=== PATIENT | male | born 1945 | race Caucasian/White ===

== ENCOUNTER 2018-07-27 15:07 | Inpatient (IN) ==
[2018-07-27] MEDS ORDERED: SODIUM CHLORIDE 0.9% 1000ML 1,000 ML IV ONE ×2 (15:24→22:47)
[2018-07-27] MEDS ORDERED: ACETAMINOPHEN 1,000 MG/100 ML VIAL IV STA (15:24)
[2018-07-27] MEDS ORDERED: PROCHLORPERAZINE 2 ML IV ONE (15:24)
--- NOTE | 2018-07-27 16:09 | XRay Report ---
XR chest 1V portable CLINICAL HISTORY: Chest Pain dyspnea COMPARISON STUDY: No previous studies for comparison. FINDINGS: Mild right and to lesser extent left basilar infiltrative change. Mid and upper lungs are c onsidered clear. IMPRESSION: Bibasilar infiltrative change. The above report was generated using voice recognition software. It may contain grammatical, syntax or spelling errors. Electronically signed by: Mango Valero M.D. 07/27/2018 4:07 PM
[2018-07-27 16:12] LABS: Basophils # (auto) 0.02 K/uL (0-0.2); Basophils % (auto) 0.3 %; Eosinophils # (auto) 0.13 K/uL (0-0.5); Eosinophils % (auto) 1.6 %; Hematocrit (blood only) 38.6 % (42-52); Hemoglobin 13.3 g/dL (14.0-18.0); Immature Granulocytes # (auto) 0.03 K/uL (0.00-0.02); Immature Granulocytes % (auto) 0.4 %; Lymphocytes # (auto) 1.47 K/uL (1.2-3.4); Lymphocytes % (auto) 18.6 %; Mean Corpuscular Hgb Conc 34.5 g/dL (32-36); Mean Corpuscular Volume 93.2 fL (80-100); Mean Platelet Volume 9.7 fL (7.4-10.4); Monocytes # (auto) 0.83 K/uL (0.11-0.59); Monocytes % (auto) 10.5 %; Neutrophils # (auto) 5.41 K/uL (1.4-6.5); Neutrophils % (auto) 68.6 %; Platelet Count 210 K/uL (130-400); Red Blood Count 4.14 M/uL (4.7-6.1); White Blood Count 7.89 K/uL (4.8-10.8)
[2018-07-27 16:19] LABS: Appearance Urine Clear (Clear); Bacteria Urine Automated Negative (Negative); Bilirubin Urine Negative (Negative); Cast Urine Automated 0 /lpf (0-5); Color Urine Yellow; Epithelial Cell Urine Auto 0-5 /lpf (0-5); Glucose Urine UA Negative (Negative); Ketones Urine 2+ (Negative); Leukocyte Esterase Urine Negative (Negative); Nitrite Urine Negative (Negative); Protein Urine Negative (Negative); Specific Gravity Urine 1.014 (1.000-1.030); Urobilinogen Urine Negative (Negative)
[2018-07-27 16:33] LABS: Alanine Aminotransferase 22 U/L (12-78); Albumin Level 3.1 gm/dl (3.4-5.0); Aspartate Aminotransferase 18 U/L (15-37); BUN Creatinine Ratio 19.7 (10-20); Blood Urea Nitrogen 17 mg/dl (7-18); Calcium 8.8 mg/dl (8.5-10.1); Carbon Dioxide 24 mmol/L (21-32); Chloride 104 mmol/L (98-107); Creatinine Clr Calc Pharmacy 70.6 ml/min; Est GFR (African American) 101.4; Est GFR (Non-African American) 87.5; Glucose 77 mg/dl (70-99); Magnesium 2.4 mg/dl (1.8-2.4); Potassium 4.2 mmol/L (3.5-5.1); Sodium 135 mmol/L (136-145)
[2018-07-27 16:38] LABS: Albumin Globulin Ratio 0.8 (0.9-2); Alkaline Phosphatase 50 U/L (45-117); Bilirubin,Total 0.5 mg/dl (0.2-1); Phosphorus 2.3 mg/dl (2.5-4.9); Total Protein 7.1 gm/dl (6.4-8.2); Troponin I < 0.015 ng/ml (0-0.045)
[2018-07-27] MEDS ORDERED: OPTIRAY 320 125ml IV PRN (17:21)
--- NOTE | 2018-07-27 18:11 | CT Scan Report ---
CT ANGIOGRAPHY OF THE CHEST, PULMONARY EMBOLUS PROTOCOL CLINICAL HISTORY: Shortness of breath. Cough. Right upper quadrant pain. COMPARISON STUDY: Chest radiograph performed earlier today. TECHNIQUE: Following IV administration of 115 mL of Optiray-320, helical axial images of the chest we re obtained utilizing the pulmonary embolus protocol. Maximal intensity projections and sagittal and coronal reformats were viewed on an independent 3D workstation. IV contrast was administered withou t complication. Automated exposure control was utilized for the study. A dose lowering technique wa s utilized adhering to the principles of ALARA. CT DOSE: 577.03 mGy.cm FINDINGS: Note is made of a segmental pulmonary embolus within the right middle lobe. There is an as sociated 5.6 cm subpleural groundglass opacity within the right middle lobe consistent with a pulmona ry infarct. A few subsegmental pulmonary emboli within the right middle lobe are noted. There is no c entral pulmonary embolus. No CT evidence for right heart strain is noted. The size of the heart is no rmal. There is a small right pleural effusion, likely due to the infarct. No pneumothorax is present. Additional bilateral lower lobe opacities favor atelectasis. There is no pneumothorax. Mild to moder ate emphysema is present. Central airways are patent. Bony thorax is unremarkable. Abdomen and pelvis will be reported separately. IMPRESSION: 1. Several segmental and subsegmental pulmonary emboli within the right middle lobe with an associate d right middle lobe infarct. Small right pleural effusion. No CT evidence for right heart strain. 2. Mild to moderate emphysema. Electronically signed by: Blane Gallardo M.D. 07/27/2018 6:09 PM
--- NOTE | 2018-07-27 18:17 | CT Scan Report ---
CT OF THE ABDOMEN AND PELVIS WITH CONTRAST CLINICAL HISTORY: Right upper quadrant pain, nausea, vomiting and cough. COMPARISON STUDY: None. TECHNIQUE: Following IV administration of 115 mL of Optiray-320, axial images of the abdomen and pelv is were obtained from the lung bases to the proximal femurs. Images were reviewed in the axial, sagit britta, and coronal planes. IV contrast was administered without complication. Automated exposure contr ol was utilized for the study. A dose lowering technique was utilized adhering to the principles of ALARA. FINDINGS: Please note that the chest CT will be reported separately. A small right pleural effusion i s noted. A segmental pulmonary embolus within the right middle lobe with an associated right middle l obe infarct is noted. The liver, spleen, adrenal glands and pancreas are unremarkable. A few low-atte nuation bilateral renal lesions favor small angiomyolipomas. There is no hydronephrosis. There is no biliary or pancreatic ductal dilatation. There is extensive colonic diverticulosis without evidence f or acute diverticulitis. There is trace fluid within the pelvis. There is prominence of the medial lo be of the prostate gland which indents the base of the bladder. There is no evidence for a bowel obst ruction. The appendix is normal. No lymphadenopathy is present. There are no suspicious osseous lesio ns. IMPRESSION: 1. No acute process within the abdomen or pelvis. 2. Segmental pulmonary embolus within the right middle lobe with an associated right middle lobe infa rct and small right pleural effusion which are better depicted on the chest CT. 3. Extensive colonic diverticulosis without evidence for acute diverticulitis. Electronically signed by: Blane Gallardo M.D. 07/27/2018 6:16 PM
[2018-07-27] MEDS ORDERED: HEPARIN SOD 5,000 UNIT/0.5 ML VIAL ONE (19:37)
[2018-07-27] MEDS ORDERED: HEPARIN 25000 UNIT/500 ML D5W IV ONE ×2 (19:37→19:46)
[2018-07-27] MEDS ORDERED: PROMETHAZINE HCL 12.5 MG in SODIUM CHLORIDE 0.9% 50 ML IV PRN (19:48)
[2018-07-27] MEDS ORDERED: MoRPHine SULFATE 4 MG/ML 1 ML CARP\\VIAL IV PRN (19:48)
[2018-07-27] MEDS ORDERED: TRAMADOL HCL 50 MG TABLET PO PRN (19:48)
[2018-07-27 19:51] LABS: Partial Thromboplastin Time 27.6 Seconds (21.0-31.0); Prothrombin Time 10.3 Seconds (9.0-12.0)
[2018-07-27] MEDS ORDERED: VALSARTAN 80 MG TAB PO SCH (20:25)
--- NOTE | 2018-07-27 20:47 | History & Physical Report ---
Date of Service July 27, 2018 Assessment & Plan (1) Pulmonary infarction: This is a 73-year-old male with a PMH of HTN who presents with right chest/abdominal pain x 3 days and was found to have several segmental and subsegmental pulmonary emboli within the right middle lobe with an associated right middle lobe infarct. -Flew from [facility] for a wedding this weekend, developed pleuritic R-sided chest pain 3 days ago that has worsened -Saturating at 95% on room air, hemodynamically stable -Chest CTA with several segmental and subsegmental pulmonary emboli within the right middle lobe with an associated right middle lobe infarct. No CT evidence for right heart strain. -Started on IV heparin in ED -See addendum for further plan details (2) HTN (hypertension): Valsartan 80mg HS (has not received PM dose) Patient seen in collaboration with Dr. Laurent. Please see addendum. History of Present Illness Chief Complaint: Right chest/abdominal pain Primary Care Provider: Cesar Wilkinson MD This is a 73-year-old male with a PMH of HTN who presents with right chest/abdominal pain x 3 days. Patient lives in [place] and recently flew to [place] for a family wedding. Following the wedding on Thursday, patient noted right-sided chest/abdominal pain that was sharp and worse with deep inspiration. Was associated with nausea. Thought that he may have pulled a muscle earlier in the day playing golf. Following the wedding, patient went to [facility] for evaluation and was thought to have had either a muscle tear or indigestion. Was discharged home with Zantac, simethicone and tramadol as needed for pain. Pain persisted and worsened over the past few days, most notable with deep inspiration. Pain is not made worse with movement. Has also had decreased appetite with intermittent nausea and one small bout of emesis. Denies any fever, chills, lightheadedness, headache, palpitations, shortness of breath, dysuria, diarrhea, constipation or lower extremity swelling. In the ED, patient was found to be hemodynamically stable and afebrile. Oxygen saturation of 95% on room air. Chest CTA with several segmental and subsegmental pulmonary emboli within the right middle lobe with an associated right middle lobe infarct. No CT evidence for right heart strain. No acute process found on CT abd/pelvis. No personal history of PEs or clotting disorders. Mother with history of PE. Was started on IV heparin in the ED. Allergies Allergy/AdvReac Type Severity Reaction Status Date / Time No Known Allergies Allergy Unverified 07/27/18 15:11 Home Medications Home Medications Medication Instructions Recorded Confirmed Type ibuprofen [Advil] 400 mg PO BID PRN 07/27/18 07/27/18 History multivitamin 1 tab PO DAILY 07/27/18 07/27/18 History ranitidine HCl [Zantac] 150 mg PO BID 07/27/18 07/27/18 History simethicone [Gas Relief 80] 80 mg PO QID PRN 07/27/18 07/27/18 History tramadol 50 mg PO Q4 PRN 07/27/18 07/27/18 History valsartan [Diovan] 80 mg PO DAILY 07/27/18 07/27/18 History Past Med/Surg History Medical History HTN (hypertension) (Chronic) Surgical History No significant past surgical history (Chronic) Family History Other Diabetes Heart disease Pulmonary embolism Social History Preferred Language: Lithuanian Communication Ability: Effective Seat Maker Required: No Beliefs That Will Affect Care: None Current Living Situation: Spouse Feels Safe at Home: Yes Safety Concerns: Feels Safe At This Time Smoking Status: Never smoker Hx Alcohol Use: Yes Alcohol type: beer, wine and hard liquor Alcohol Intake Frequency Comment: has 1-2 drinks 3-5 days/week Hx Substance Use: No Review of Systems Review of Systems: At least ten systems reviewed and negative except as noted in the HPI. Physical Exam Physical Exam: General Appearance: WD/WN, no apparent distress, resting comfortably Head: normocephalic, atraumatic Eyes: normal inspection, PERRL, EOMI ENT: hearing grossly normal, pharynx normal (moist mucous membranes) Neck: supple, no JVD, no adenopathy Respiratory/Chest: lungs clear to auscultation. No wheezes, rales or rhonci. No respiratory distress or accessory muscle use Cardiovascular: regular rate, rhythm, no murmur, normal peripheral pulses Abdomen/GI: normal bowel sounds, soft, non-tender to palpation Extremities/Musculoskelatal: normal inspection, no calf tenderness, normal capillary refill, no pedal edema Neurologic/Psych: alert, normal mood/affect, oriented x 3 Skin: normal color, warm/dry Results & Data Vital Signs (Past 12 Hours) Vital Signs Temp Pulse Pulse Resp BP BP Pulse Ox 07/27/18 20:24 63 18 143/79 H 95 07/27/18 18:30 64 17 151/86 H 98 07/27/18 17:38 66 21 145/81 H 96 07/27/18 17:00 67 22 152/85 H 98 07/27/18 16:00 68 20 142/82 H 97 07/27/18 15:55 68 18 149/80 H 98 07/27/18 15:11 36.5 C 71 20 171/93 H 97 Code Status & VTE Plan Code Status FULL Supervising Physician Co-Signing Physician Notes IM ATTENDING : Patient seen and examined. History obtained from patient and records. Preceding documentation by Ms. Mona Gannon PA-C reviewed. In addition, stool Hemoccult done at the ER was negative. FINAL ASSESSMENT AND PLAN as follows : Acute pulmonary embolism First episode Rule out LE venous thrombosis as source, hx travel from [place] Family history of blood clot Hypertension slight elevated secondary to pleuritic chest pain secondary to pulmonary infarct Anemia, unknown duration, possibly from intermittent LGIB from diverticulosis. (Patient recalls one episode of painless hematochezia at home. ) Medical telemetry IV heparin Defer discussion regarding choice of oral agent between patient and AM provider. (Patient has expressed interest in NOAC option.) LE venous Dopplers rule out DVT Anemia work-up DVT prophylaxis IV heparin Full code
[2018-07-27] MEDS ORDERED: MoRPHine SULFATE 2 MG/ML CARP IV PRN (22:47)
[2018-07-27] MEDS ORDERED: ACETAMINOPHEN 325 MG TAB PO PRN (22:47)
[2018-07-27] MEDS ORDERED: SODIUM PHOSPHATE 3 MMOL/1 ML 5 ML VIAL IV STA (22:47)
--- NOTE | 2018-07-27 23:20 | Emergency Department Note ---
Entered by Suma Liang acting as a scribe for Jean Waldrop MD History of Present Illness General Chief complaint: Abdominal Pain Stated complaint: RIGHT ABDOMINAL PAIN, NAUSEA, VOMITING, COUGH Time Seen by Provider: 07/27/18 15:16 Source: patient History of Present Illness Onset (ago): day(s) 2 Location: abdomen Severity: similar to prior episodes Pain Consistency: + constant Maximum Pain Intensity: 3 Associated symptoms: + denies other symptoms (burning urination) and + nausea/vomiting; no fever/chills and no shortness of breath The patient is a 73 year old M who presents to the Emergency Room with complaints of constant upper abdominal pain that started 2 days ago. He notes that he is currently experiencing vomiting and nausea. He denies experiencing a fever, chills, shortness of breath, and burning urination. He notes that he was in the ED 2 days ago for his current symptoms. He adds that prior to his last ED visit, he was at a wedding and had a beer to drink. He denies being intoxicated but notes that the ED doctor told him that his symptoms were due to alcohol. He notes that he was told to return to the ED if his symptoms did not resolve. He adds that this is the reason why he is in the ED today. He states that prior to 2 days ago, he never experienced his current symptoms. He notes that he has not eaten for 2 days. He states that he has a history of HTN and regular alcohol drinking. He adds that he has gone 3-4 days before without drinking. He denies having a history of smoking and gallstones. He notes that he has been retired for 9 years. Home Medications Home Medications Medication Instructions Recorded Confirmed Type ibuprofen [Advil] 400 mg PO BID PRN 07/27/18 07/27/18 History multivitamin 1 tab PO DAILY 07/27/18 07/27/18 History ranitidine HCl [Zantac] 150 mg PO BID 07/27/18 07/27/18 History simethicone [Gas Relief 80] 80 mg PO QID PRN 07/27/18 07/27/18 History tramadol 50 mg PO Q4 PRN 07/27/18 07/27/18 History valsartan [Diovan] 80 mg PO DAILY 07/27/18 07/27/18 History Allergies Allergy/AdvReac Type Severity Reaction Status Date / Time No Known Allergies Allergy Unverified 07/27/18 15:11 Past Med/Surg History Medical History HTN (hypertension) (Chronic) Surgical History No significant past surgical history (Chronic) Family History Other Diabetes Heart disease Pulmonary embolism Social History Preferred Language: Yakut Communication Ability: Effective Floorworker Required: No Beliefs That Will Affect Care: None Current Living Situation: Spouse Feels Safe at Home: Yes Safety Concerns: Feels Safe At This Time Smoking Status: Never smoker Hx Alcohol Use: Yes Alcohol type: beer, wine and hard liquor Alcohol Intake Frequency Comment: has 1-2 drinks 3-5 days/week Hx Substance Use: No Review of Systems See HPI for pertinent positives & negatives. and A total of 10 systems reviewed and were otherwise negative Physical Exam Vital Signs Vital Signs - 24 hr 07/27/18 15:11 07/27/18 15:55 07/27/18 16:00 Temperature 36.5 C Temperature Source Oral Sepsis Recent Fever Within 48 Hours No Sepsis New/Unexplained Change in Mental Status No Sepsis Action Taken by Nursing No Action Required Pulse Rate 71 Pulse Rate [Left Finger] 68 68 Pulse Rhythm Regular Pulse Rhythm [Left Finger] Regular Regular Pulse Strength Normal Respiratory Rate 20 18 20 Respiratory Effort / Characteristics Non-Labored Spontaneous Non-Labored Non-Labored Respiratory Depth Normal Normal Normal Respiratory Pattern Regular Regular Regular Blood Pressure 171/93 H Blood Pressure [Left Arm] 149/80 H 142/82 H Blood Pressure Mean 119 Blood Pressure Mean [Left Arm] 103 102 Blood Pressure Position Sitting Pulse Oximetry 97 98 97 Oxygen Delivery Method Room Air Room Air Room Air 07/27/18 17:00 07/27/18 17:38 07/27/18 18:30 Temperature Temperature Source Sepsis Recent Fever Within 48 Hours Sepsis New/Unexplained Change in Mental Status Sepsis Action Taken by Nursing Pulse Rate Pulse Rate [Left Finger] 67 66 64 Pulse Rhythm Pulse Rhythm [Left Finger] Regular Regular Regular Pulse Strength Respiratory Rate 22 21 17 Respiratory Effort / Characteristics Non-Labored Non-Labored Non-Labored Respiratory Depth Normal Normal Normal Respiratory Pattern Regular Regular Regular Blood Pressure Blood Pressure [Left Arm] 152/85 H 145/81 H 151/86 H Blood Pressure Mean Blood Pressure Mean [Left Arm] 107 102 107 Blood Pressure Position Pulse Oximetry 98 96 98 Oxygen Delivery Method Room Air Room Air Room Air 07/27/18 20:24 Temperature Temperature Source Sepsis Recent Fever Within 48 Hours Sepsis New/Unexplained Change in Mental Status Sepsis Action Taken by Nursing Pulse Rate Pulse Rate [Left Finger] 63 Pulse Rhythm Pulse Rhythm [Left Finger] Pulse Strength Respiratory Rate 18 Respiratory Effort / Characteristics Respiratory Depth Respiratory Pattern Blood Pressure Blood Pressure [Left Arm] 143/79 H Blood Pressure Mean Blood Pressure Mean [Left Arm] 100 Blood Pressure Position Pulse Oximetry 95 Oxygen Delivery Method Room Air GENERAL: Awake, alert, fatigued appearing, no distress HENT: Normocephalic, atraumatic. TM's normal. Dry mucous membranes. EYES: PERRL. EOMI. Normal conjunctiva. Sclera non-icteric. NECK: Supple. No nuchal rigidity. FROM. No JVD or bruit. RESPIRATORY: CTAB CARDIAC: RRR. ABDOMEN: Soft, non distended. Mild RUQ tenderness to palpation, negative newman's sign. No rebound or guarding. No masses. RECTAL: Deferred. MUSCULOSKELETAL: Unremarkable. No edema. No discoloration. Gross motor strength symmetric. NEURO: Normal sensorium. No sensory or motor deficits noted. SKIN: No rash or jaundice noted. LYMPH: No adenopathy Course 1517: The patient was evaluated in room A11B. A complete history and physical exam was performed. 1539: I performed a bedside ultrasound on the patient. 1843: I reviewed the patient's case with CLAIRE Wayne. She will evaluate the patient for further management. Consultations Consultation #1: I reviewed the patient's case with CLAIRE Wayne. She will evaluate the patient for further management. Time: 18:43 Administered Medications Sodium Chloride (Nss 1000ml) 1,000 mls @ 50 mls/hr IV .Q20H ONE Stop: 07/28/18 18:46 Last Admin: 07/28/18 00:39 Dose: 50 mls/hr Documented by: [id number] Sodium Phosphate 15 mmol/ (Sodium Chloride) 255 mls @ 88 mls/hr IV ONE ONE Stop: 07/28/18 02:23 Last Admin: 07/28/18 00:39 Dose: 88 mls/hr Documented by: [id number] Heparin Sodium/Dextrose (Heparin Sodium/Dextrose) 25,000 units in 500 mls @ 23 mls/hr IV .[id number] RHIANNON; Protocol Stop: 08/26/18 23:44 Last Admin: 07/28/18 00:40 Dose: 1,150 units/hr, 23 mls/hr Documented by: [id number] Cosigned by: [id number] Valsartan (Diovan) 80 mg PO HS RHIANNON Stop: 08/26/18 20:24 Last Admin: 07/28/18 00:40 Dose: 80 mg Documented by: [id number] Discontinued Medications Heparin Sodium (Porcine) (Heparin Sodium (Porcine)) Confirm Administered Dose 5,000 units .ROUTE .STK-MED ONE Stop: 07/27/18 19:38 Last Admin: 07/27/18 19:52 Dose: 5,000 units Documented by: [id number] Cosigned by: [id number] Heparin Sodium/Dextrose () 1 ea IV NOW STA; Protocol Stop: 07/27/18 18:39 Last Admin: 07/27/18 19:52 Dose: 1 ea Documented by: [id number] Heparin Sodium/Dextrose (Heparin Sodium/Dextrose) Confirm Administered Dose 25,000 units IV .STK-MED ONE Stop: 07/27/18 19:38 Last Admin: 07/27/18 19:45 Dose: Not Given Documented by: [id number] Heparin Sodium/Dextrose (Heparin Sodium/Dextrose) Confirm Administered Dose 25,0 00 units IV .STK-MED ONE Stop: 07/27/18 19:47 Last Admin: 07/27/18 19:51 Dose: 500 ml Documented by: [id number] Cosigned by: [id number] Prochlorperazine (Compazine) 2 mls @ 1 mls/min IV ONE ONE Stop: 07/27/18 15:25 Last Admin: 07/27/18 21:24 Dose: Not Given Documented by: [id number] Sodium Chloride (Nss 1000ml) 1,000 mls @ 999 mls/hr IV .Q1H1M ONE Stop: 07/27/18 16:24 Last Infusion: 07/27/18 17:09 Dose: 0 mls/hr Documented by: [id number] Admin: 07/27/18 16:07 Dose: 999 mls/hr Documented by: [id number] Acetaminophen (Ofirmev) 1,000 mg in 100 mls @ 400 mls/hr IV NOW STA Stop: 07/27/18 15:38 Last Infusion: 07/27/18 16:37 Dose: 0 mls/hr Documented by: [id number] Admin: 07/27/18 16:15 Dose: 400 mls/hr Documented by: [id number] Ioversol (Optiray 320 125ml) 115 ml IV ONCE PRN PRN Reason: Interaction Checking Stop: 07/31/18 17:20 Last Admin: 07/27/18 17:21 Dose: 115 ml Documented by: [id number] Medical Decision Making Differential Diagnosis Differential diagnosis includes: cardiac ischemia, aortic dissection, pulmonary embolism, pneumonia, pneumothorax, musculoskeletal, infections, pericarditis, myocarditis, esophageal rupture, gastrointestinal, as well as others were entert ained. Medical Records Attestation: I reviewed the patient's medical records. Home Medications Current Medication List: was personally reviewed by me Laboratory Data Attestation: I reviewed the patient's lab results. Result diagrams: 07/27/18 16:00 07/27/18 16:00 Lab Results 07/27/18 07/27/18 07/27/18 Range/Units 16:00 16:00 16:03 WBC 7.89 (4.8-10.8) K/uL RBC 4.14 L (4.7-6.1) M/uL Hgb 13.3 L (14.0-18.0) g/dL Hct 38.6 L (42-52) % MCV 93.2 (80-100) fL MCH 32.1 (25-34) pg MCHC 34.5 (32-36) g/dL RDW Std Deviation 45.0 (36.4-46.3) fL RDW Coeff of Tamia 13.0 (11.5-14.5) % Plt Count 210 (130-400) K/uL MPV 9.7 (7.4-10.4) fL Immature Gran % (Auto) 0.4 % Neut % (Auto) 68.6 % Lymph % (Auto) 18.6 % [place] % (Auto) 10.5 % Eos % (Auto) 1.6 % Baso % (Auto) 0.3 % Immature Gran # (Auto) 0.03 H (0.00-0.02) K/uL Neut # (Auto) 5.41 (1.4-6.5) K/uL Lymph # (Auto) 1.47 (1.2-3.4) K/uL [place] # (Auto) 0.83 H (0.11-0.59) K/uL Eos # (Auto) 0.13 (0-0.5) K/uL Baso # (Auto) 0.02 (0-0.2) K/uL PT (9.0-12.0) Seconds INR (0.9-1.1) APTT (21.0-31.0) Seconds PTT Ratio Sodium 135 L (136-145) mmol/L Potassium 4.2 (3.5-5.1) mmol/L Chloride 104 (98-107) mmol/L Carbon Dioxide 24 (21-32) mmol/L Anion Gap 7.0 (3-11) BUN 17 (7-18) mg/dl Creatinine 0.84 (0.6-1.4) mg/dl Est Cr Clr Drug Dosing 70.6 ml/min Est GFR ( Amer) 101.4 Est GFR (Non-Af Amer) 87.5 BUN/Creatinine Ratio 19.7 (10-20) Glucose 77 (70-99) mg/dl Calcium 8.8 (8.5-10.1) mg/dl Phosphorus 2.3 L (2.5-4.9) mg/dl Magnesium 2.4 (1.8-2.4) mg/dl Total Bilirubin 0.5 (0.2-1) mg/dl AST 18 (15-37) U/L ALT 22 (12-78) U/L Alkaline Phosphatase 50 (45-117) U/L Troponin I < 0.015 (0-0.045) ng/ml Total Protein 7.1 (6.4-8.2) gm/dl Albumin 3.1 L (3.4-5.0) gm/dl Globulin 4.0 (2.5-4.0) gm/dl Albumin/Globulin Ratio 0.8 L (0.9-2) Lipase 551 H (73-393) U/L Urine Color Yellow Urine Appearance Clear (Clear) Urine pH 5.0 (4.5-7.5) Ur Specific [place] 1.014 (1.000-1.030) Urine Protein Negative (Negative) Urine Glucose (UA) Negative (Negative) Urine Ketones 2+ H (Negative) Urine Blood 2+ H (Negative) Urine Nitrite Negative (Negative) Urine Bilirubin Negative (Negative) Urine Urobilinogen Negative (Negative) Ur Leukocyte Esterase Negative (Negative) Urine WBC (Auto) 1-5 (0-5) /hpf Urine RBC (Auto) 0-4 (0-4) /hpf U Hyaline Cast (Auto) 0 (0-5) /lpf U Epithel Cells (Auto) 0-5 (0-5) /lpf Urine Bacteria (Auto) Negative (Negative) 07/27/18 Range/Units 19:14 WBC (4.8-10.8) K/uL RBC (4.7-6.1) M/uL Hgb (14.0-18.0) g/dL Hct (42-52) % MCV (80-100) fL MCH (25-34) pg MCHC (32-36) g/dL RDW Std Deviation (36.4-46.3) fL RDW Coeff of Tamia (11.5-14.5) % Plt Count (130-400) K/uL MPV (7.4-10.4) fL Immature Gran % (Auto) % Neut % (Auto) % Lymph % (Auto) % [place] % (Auto) % Eos % (Auto) % Baso % (Auto) % Immature Gran # (Auto) (0.00-0.02) K/uL Neut # (Auto) (1.4-6.5) K/uL Lymph # (Auto) (1.2-3.4) K/uL [place] # (Auto) (0.11-0.59) K/uL Eos # (Auto) (0-0.5) K/uL Baso # (Auto) (0-0.2) K/uL PT 10.3 (9.0-12.0) Seconds INR 1.0 (0.9-1.1) APTT 27.6 (21.0-31.0) Seconds PTT Ratio 1.0 Sodium (136-145) mmol/L Potassium (3.5-5.1) mmol/L Chloride (98-107) mmol/L Carbon Dioxide (21-32) mmol/L Anion Gap (3-11) BUN (7-18) mg/dl Creatinine (0.6-1.4) mg/dl Est Cr Clr Drug Dosing ml/min Est GFR ( Amer) Est GFR (Non-Af Amer) BUN/Creatinine Ratio (10-20) Glucose (70-99) mg/dl Calcium (8.5-10.1) mg/dl Phosphorus (2.5-4.9) mg/dl Magnesium (1.8-2.4) mg/dl Total Bilirubin (0.2-1) mg/dl AST (15-37) U/L ALT (12-78) U/L Alkaline Phosphatase (45-117) U/L Troponin I (0-0.045) ng/ml Total Protein (6.4-8.2) gm/dl Albumin (3.4-5.0) gm/dl Globulin (2.5-4.0) gm/dl Albumin/Globulin Ratio (0.9-2) Lipase (73-393) U/L Urine Color Urine Appearance (Clear) Urine pH (4.5-7.5) Ur Specific [place] (1.000-1.030) Urine Protein (Negative) Urine Glucose (UA) (Negative) Urine Ketones (Negative) Urine Blood (Negative) Urine Nitrite (Negative) Urine Bilirubin (Negative) Urine Urobilinogen (Negative) Ur Leukocyte Esterase (Negative) Urine WBC (Auto) (0-5) /hpf Urine RBC (Auto) (0-4) /hpf U Hyaline Cast (Auto) (0-5) /lpf U Epithel Cells (Auto) (0-5) /lpf Urine Bacteria (Auto) (Negative) Imaging Data Radiologist's Impression: Radiology results as stated below per my review and the radiologist's interpretation: XR chest 1V portable CLINICAL HISTORY: Chest Pain dyspnea COMPARISON STUDY: No previous studies for comparison. FINDINGS: Mild right and to lesser extent left basilar infiltrative change. Mid and upper lungs are considered clear. IMPRESSION: Bibasilar infiltrative change. The above report was generated using voice recognition software. It may contain grammatical, syntax or spelling errors. Electronically signed by: Mango Valero M.D. 07/27/2018 4:[address] ANGIOGRAPHY OF THE CHEST, PULMONARY EMBOLUS PROTOCOL CLINICAL HISTORY: Shortness of breath. Cough. Right upper quadrant pain. COMPARISON STUDY: Chest radiograph performed earlier today. TECHNIQUE: Following IV administration of 115 mL of Optiray-320, helical axial images of the chest were obtained utilizing the pulmonary embolus protocol. Maximal intensity projections and sagittal and coronal reformats were viewed on an independent 3D workstation. IV contrast was administered without complication. Automated exposure control was utilized for the study. A dose lowering technique was utilized adhering to the principles of ALARA. CT DOSE: 577.03 mGy.cm FINDINGS: Note is made of a segmental pulmonary embolus within the right middle lobe. There is an associated 5.6 cm subpleural groundglass opacity within the right middle lobe consistent with a pulmonary infarct. A few subsegmental pulmonary emboli within the right middle lobe are noted. There is no central pulmonary embolus. No CT evidence for right heart strain is noted. The size of the heart is normal. There is a small right pleural effusion, likely due to the infarct. No pneumothorax is present. Additional bilateral lower lobe opacities favor atelectasis. There is no pneumothorax. Mild to moderate emphysema is present. Central airways are patent. Bony thorax is unremarkable. Abdomen and pelvis will be reported separately. IMPRESSION: 1. Several segmental and subsegmental pulmonary emboli within the right middle lobe with an associated right middle lobe infarct. Small right pleural effusion. No CT evidence for right heart strain. 2. Mild to moderate emphysema. Electronically signed by: Blane Gallardo M.D. 07/27/2018 6:[address] OF THE ABDOMEN AND PELVIS WITH CONTRAST CLINICAL HISTORY: Right upper quadrant pain, nausea, vomiting and cough. COMPARISON STUDY: None. TECHNIQUE: Following IV administration of 115 mL of Optiray-320, axial images of the abdomen and pelvis were obtained from the lung bases to the proximal femurs. Images were reviewed in the axial, sagittal, and coronal planes. IV contrast was administered without complication. Automated exposure control was utilized for the study. A dose lowering technique was utilized adhering to the principles of ALARA. FINDINGS: Please note that the chest CT will be reported separately. A small right pleural effusion is noted. A segmental pulmonary embolus within the right middle lobe with an associated right middle lobe infarct is noted. The liver, spleen, adrenal glands and pancreas are unremarkable. A few low-attenuation bilateral renal lesions favor small angiomyolipomas. There is no hydronephrosis. There is no biliary or pancreatic ductal dilatation. There is extensive colonic diverticulosis without evidence for acute diverticulitis. There is trace fluid within the pelvis. There is prominence of the medial lobe of the prostate gland which indents the base of the bladder. There is no evidence for a bowel obstruction. The appendix is normal. No lymphadenopathy is present. There are no suspicious osseous lesions. IMPRESSION: 1. No acute process within the abdomen or pelvis. 2. Segmental pulmonary embolus within the right middle lobe with an associated right middle lobe infarct and small right pleural effusion which are better depicted on the chest CT. 3. Extensive colonic diverticulosis without evidence for acute diverticulitis. Electronically signed by: Blane Gallardo M.D. 07/27/2018 6:16 PM ECG Data Attestation: I personally reviewed and interpreted this ECG as follows: Indication: abdominal pain Rate (beats per minute): 69 Rhythm: normal sinus Findings: + other (normal axis); no acute ischemic change Blood Pressure Blood Pressure Findings: Elevated blood pressure Blood Pressure Disposition: further management by hospitalist KIET Herrera The patient is a pleasant 73 y/o gentleman with a pmhx of HTN who presents to the emergency department with persistent RUQ right lower chest pain with associated nausea and pain with inspiration per HPI. Patient is visiting from [place] and first experienced sx 2 days at wedding when he presented to [facility] and was diagnosed with alcohol gastritis. On arrival the patient is fatigued appearing but in NAD, AFVSS. EKG unremarkable without evidence of acute ischemia. CXR with bibasilar infiltrative change. Bedside US of gallbladder negative for gallstones. Limited bedside lung US with right basilar hyperechoic signal that further suggests infiltrative change. No evidence of right heart strain. WBC wnl. H/H 13.3/38.6 without prior values for comparison. Chemistry without acidosis. LFTs unremarkable. Troponin negative. CTA of chest demonstrates "several segmental and subsegmental pulmonary emboli within the right middle lobe with an associated right middle lobe infarct and small right pleural effusion". CT abd/pelvis without acute process. Patient and family updated on findings. Patient denies any history of bleeding GI or otherwise. Patient ordered for Heparin considering evidence of pulmonary infarct. Case was discussed with MonaKandi Loera PAC, who evaluate the patient for admission. Impression & Plan Pulmonary embolism and infarction Critical Care Time I have personally spent greater than 55 minutes of critical care time in the direct management of this patient. This includes bedside care, interpretation of diagnostic studies, and testing, discussion with consultants, patient, and family members, and other required patient management activities. This 55 minutes is in excess of all separately billable procedures. Critical Care Time: Yes Total Critical Care Time: 55 Discharge Plan Visit Data *Final* Discharge Date/Time: 07/27/18 22:34 Chief Complaint: Abdominal Pain Stated Complaint: RIGHT ABDOMINAL PAIN, NAUSEA, VOMITING, COUGH ED Provider: Jean Waldrop Discharge Problem: Pulmonary embolism and infarction Patient Disposition: Admitted As Inpatient Discharge Instructions Interventions: ED Discharge Assessment Last Done: 07/27/18 22:34 The scribe's documentation has been prepared under my direction and personally reviewed by me in its entirety. I confirm that the note above accurately reflects all work, treatment, procedures, and medical decision making performed by me.
[2018-07-27] MEDS ORDERED: SODIUM PHOSPHATE 15 MMOL in SODIUM CHLORIDE 0.9% 250 ML IV ONE (23:30)
[2018-07-27] MEDS ORDERED: Heparin Adult STANDARD Wt-Based Dextrose 5% 25,000 units/500 mL IV SCH (23:45)
[2018-07-28 02:11] LABS: Basophils # (auto) 0.02 K/uL (0-0.2); Basophils % (auto) 0.3 %; Eosinophils # (auto) 0.13 K/uL (0-0.5); Eosinophils % (auto) 1.8 %; Hematocrit (blood only) 35.7 % (42-52); Hemoglobin 12.4 g/dL (14.0-18.0); Immature Granulocytes # (auto) 0.02 K/uL (0.00-0.02); Immature Granulocytes % (auto) 0.3 %; Lymphocytes # (auto) 1.31 K/uL (1.2-3.4); Lymphocytes % (auto) 17.8 %; Mean Corpuscular Hgb Conc 34.7 g/dL (32-36); Mean Platelet Volume 9.6 fL (7.4-10.4); Monocytes # (auto) 0.79 K/uL (0.11-0.59); Monocytes % (auto) 10.7 %; Neutrophils # (auto) 5.11 K/uL (1.4-6.5); Neutrophils % (auto) 69.1 %; Platelet Count 203 K/uL (130-400); RDW Coefficient of Variation 12.8 % (11.5-14.5); RDW Standard Deviation 43.3 fL (36.4-46.3); Red Blood Count 3.88 M/uL (4.7-6.1); Reticulocyte % 0.9 % (0.5-2.0); Reticulocytes # 0.04 10^6/uL (0.02-0.10); White Blood Count 7.38 K/uL (4.8-10.8)
[2018-07-28 02:32] LABS: Ferritin 294.5 ng/ml (8-388); Phosphorus 2.8 mg/dl (2.5-4.9)
[2018-07-28 02:34] LABS: Partial Thromboplastin Ratio 2.6
[2018-07-28 02:36] LABS: Partial Thromboplastin Time 70.9 Seconds (21.0-31.0)
[2018-07-28 02:50] LABS: Folate (Folic Acid) 16.7 ng/ml (>5.38)
--- NOTE | 2018-07-28 06:24 | Ultrasound Report ---
US venous doppler LE BI CLINICAL HISTORY: Pulmonary embolism. COMPARISON STUDY: No previous studies for comparison. FINDINGS: Real-time and color flow Doppler imaging were performed. Flow was seen within the femoral, popliteal and calf veins with no intraluminal thrombus demonstrated. The saphenous vein is patent. IMPRESSION: No evidence of lower extremity DVT. Electronically signed by: Renny Garcia M.D. 07/28/2018 6:22 AM
[2018-07-28] MEDS: Heparin IV Standard *NO* Bolus IV SCH ×2 (07:29→07:30)
[2018-07-28] MEDS ORDERED: MULTIVITAMIN TAB PO SCH (09:00)
[2018-07-28 09:48] LABS: Partial Thromboplastin Ratio 2.3
[2018-07-28 10:08] LABS: Partial Thromboplastin Time 62.1 Seconds (21.0-31.0)
[2018-07-28 11:52] VITALS: PULSE 68; TEMP 98.2; O2SAT 93
--- NOTE | 2018-07-28 13:31 | Hospitalist Progress Note ---
Date of Service July 28, 2018 Assessment & Plan (1) Pulmonary infarction: Patient is a 73 yr male with H/O HTN who presents with right chest/abdominal pain x 3 days and was found to have several segmental and subsegmental pulmonary emboli within the right middle lobe with an associated right middle lobe infarct. Acute pulmonary embolism H/O recent travel Chest CTA with several segmental and subsegmental pulmonary emboli within the right middle lobe with an associated right middle lobe infarct. No CT evidence for right heart strain. Venous Doppler:No evidence of lower extremity DVT. IV Heparin ggt >>>Transitioned to PO Eliquis Patient prefers eliquis and agrees with above management Saturating well on Room air Right pleuritic chest pain improved Hypercoagulable work up as outpatient (2) HTN (hypertension): Valsartan 80mg HS DVT Px: On Eliquis Code Status Full Code Subjective Patient is seen and examined at bedside Right sided pleuritic chest pain much improved Denies any shortness of breath, dizziness, abdominal pain, bleeding issues Eager to get discharged Offers no other complaints Prefers to be started on Eliquis. Review of Systems Review of Systems: All systems reviewed & are unremarkable except as noted in HPI & below Physical Exam 2 Physical Exam: Physical Exam: Vitals signs as noted above General Appearance:Moderately built and nourished, no apparent distress Head: normocephalic, Atraumatic Eyes: normal inspection, EOMI Neck: supple, Trachea midline Respiratory/Chest: Normal breath sounds, CTA Cardiovascular: S1, S2, No murmur Abdomen/GI:Soft, Non tender, Bowel sounds present Extremities/Musculoskelatal:normal inspection, no edema Neurologic/Psych:AAOX3, grossly no focal neurological deficits Skin: normal color, warm Results & Data Vital Signs (Past 12 Hours) Vital Signs Temp Pulse Pulse Resp BP Pulse Ox 07/28/18 11:52 36.8 C 68 16 136/76 93 07/28/18 08:33 62 07/28/18 07:47 37 C 65 18 149/83 H 95 07/28/18 07:13 37 C 65 18 149/83 H 95 07/28/18 04:00 36.5 C 60 20 138/76 96 07/28/18 01:26 71 Laboratory Results Short CBC 07/27/18 07/28/18 Range/Units 16:00 01:48 WBC 7.89 7.38 (4.8-10.8) K/uL Hgb 13.3 L 12.4 L (14.0-18.0) g/dL Hct 38.6 L 35.7 L (42-52) % Plt Count 210 203 (130-400) K/uL BMP 07/27/18 16:00 Sodium 135 L Potassium 4.2 Chloride 104 Carbon Dioxide 24 BUN 17 Creatinine 0.84 Glucose 77 Calcium 8.8 Cardiac Enzymes 07/27/18 Range/Units 16:00 Troponin I < 0.015 (0-0.045) ng/ml Liver Function 07/27/18 Range/Units 16:00 Total Bilirubin 0.5 (0.2-1) mg/dl AST 18 (15-37) U/L ALT 22 (12-78) U/L Alkaline Phosphatase 50 (45-117) U/L Albumin 3.1 L (3.4-5.0) gm/dl Urine 07/27/18 Range/Units 16:03 Urine Color Yellow Urine Appearance Clear (Clear) Urine pH 5.0 (4.5-7.5) Ur Specific [place] 1.014 (1.000-1.030) Urine Protein Negative (Negative) Urine Glucose (UA) Negative (Negative)
--- NOTE | 2018-07-28 13:41 | Discharge Summary ---
Date of Service July 28, 2018 Admission HPI Per Admitting Provider This is a 73-year-old male with a PMH of HTN who presents with right chest/abdominal pain x 3 days. Patient lives in [place] and recently flew to [place] for a family wedding. Following the wedding on Thursday, patient noted right-sided chest/abdominal pain that was sharp and worse with deep inspiration. Was associated with nausea. Thought that he may have pulled a muscle earlier in the day playing golf. Following the wedding, patient went to [facility] for evaluation and was thought to have had either a muscle tear or indigestion. Was discharged home with Zantac, simethicone and tramadol as needed for pain. Pain persisted and worsened over the past few days, most notable with deep inspiration. Pain is not made worse with movement. Has also had decreased appetite with intermittent nausea and one small bout of emesis. Denies any fever, chills, lightheadedness, headache, palpitations, shortness of breath, dysuria, diarrhea, constipation or lower extremity swelling. In the ED, patient was found to be hemodynamically stable and afebrile. Oxygen saturation of 95% on room air. Chest CTA with several segmental and subsegmental pulmonary emboli within the right middle lobe with an associated right middle lobe infarct. No CT evidence for right heart strain. No acute process found on CT abd/pelvis. No personal history of PEs or clotting disorders. Mother with history of PE. Was started on IV heparin in the ED. Admission Exam Per Admitting Provider General Appearance: WD/WN, no apparent distress, resting comfortably Head: normocephalic, atraumatic Eyes: normal inspection, PERRL, EOMI ENT: hearing grossly normal, pharynx normal (moist mucous membranes) Neck: supple, no JVD, no adenopathy Respiratory/Chest: lungs clear to auscultation. No wheezes, rales or rhonci. No respiratory distress or accessory muscle use Cardiovascular: regular rate, rhythm, no murmur, normal peripheral pulses Abdomen/GI: normal bowel sounds, soft, non-tender to palpation Extremities/Musculoskelatal: normal inspection, no calf tenderness, normal capillary refill, no pedal edema Neurologic/Psych: alert, normal mood/affect, oriented x 3 Skin: normal color, warm/dry Principal Diagnosis Discharge Information Discharge Diagnosis Acute pulmonary embolism/Infarct Discharge Goals Decrease discomfort,Improve function,Improve disease control Discharge Activity Limitations Per instructions/follow-up Discharge Data Allergies Allergy/AdvReac Type Severity Reaction Status Date / Time No Known Allergies Allergy Unverified 07/27/18 15:11 Consultations 07/27/18 18:40 ED Decision to Admit Stat Procedures Performed CTA: 1. Several segmental and subsegmental pulmonary emboli within the right middle lobe with an associated right middle lobe infarct. Small right pleural effusion. No CT evidence for right heart strain. 2. Mild to moderate emphysema. CT ABD: 1. No acute process within the abdomen or pelvis. 2. Segmental pulmonary embolus within the right middle lobe with an associated right middle lobe infarct and small right pleural effusion which are better depicted on the chest CT. 3. Extensive colonic diverticulosis without evidence for acute diverticulitis. Venous Doppler: No evidence of lower extremity DVT Ordered Studies 07/27/18 15:39 CT abd pelvis IV con only Stat CT angio chest PE protocol Stat 07/27/18 19:47 US venous doppler [facility] Urgent Hospital Course (1) Pulmonary infarction: Patient is a 73 yr male with H/O HTN who presents with right chest/abdominal pain x 3 days and was found to have several segmental and subsegmental pulmonary emboli within the right middle lobe with an associated right middle lobe infarct. Acute pulmonary embolism/Infarct H/O recent travel Chest CTA with several segmental and subsegmental pulmonary emboli within the right middle lobe with an associated right middle lobe infarct. No CT evidence for right heart strain. Venous Doppler:No evidence of lower extremity DVT. IV Heparin ggt >>>Transitioned to PO Eliquis Patient prefers eliquis and agrees with above management Saturating well on Room air Right pleuritic chest pain improved Hypercoagulable work up as outpatient (2) HTN (hypertension): Valsartan 80mg HS DVT Px: On Eliquis Code Status Full Code Total Time Total Time Spent Total Time Spent (In Minutes): 37 minutes Total Time Includes: Examination of the Patient, Discharge Planning, Medication Reconciliation and Other Discharge Plan Discharge Items Patient Disposition: Home - Self-Care Reason For Visit: PE Discharge Diagnosis: Acute pulmonary embolism/Infarct Discharge Goals: Decrease discomfort, Improve disease control and Improve function Activity: Per 'Additional Instructions' section Exercise/Sports: Gradually increase as tolerated Non-emergency contact: Primary Care Provider Call non-emergency contact if: you have any medication questions, your symptoms worsen, your pain is not controlled, your pain is worsening, your pain is unusual for you, your pain is concerning for you and you have a fever Follow-up/Referrals: Cesar Wilkinson MD [Primary Care Provider] - Diet: Heart Healthy Addtl Provider Instructions: Follow up with your Primary Care Physician in 1 week Take Eliquis 10 mg twice a day for 7 days and then 5 mg twice a day Hypercoagulable work up as outpatient as per your Physician Seek immediate medical attention if your symptoms reoccur or worsen Avoid NSAIDs as advised due to risk for bleeding while on Eliquis Prescriptions: New Eliquis 5 mg tablet 5 mg PO UD 30 Days Qty: 74 RF: 0 Continued multivitamin Tablet 1 tab PO DAILY RF: 0 valsartan [Diovan] 80 mg tablet 80 mg PO DAILY RF: 0 tramadol 50 mg Tablet 50 mg PO Q4 PRN (Reason: Pain) RF: 0 ranitidine HCl [Zantac] 150 mg Tablet 150 mg PO BID RF: 0 simethicone [Gas Relief 80] 80 mg Tablet,Chewable 80 mg PO QID PRN (Reason: gas/bloating) RF: 0 Discontinued ibuprofen [Advil] 200 mg Tablet 400 mg PO BID PRN (Reason: Pain) RF: 0 Stand-Alone Forms: Call Back Authorization, [facility] Discharge Orders: Discharge Order (Routine); Ordered 07/28/18 Ordered By: Hernandez Wright Admission Data Admit Date/Time: 07/27/18 21:01 Attending Provider: Hernandez Wright Admit Provider: Manohar Laurent Primary Care Provider: Cesar Wilkinson Other Providers: Manohar Laurent Service: Telemetry Medical Other Interventions: Discharge Summary Assessment (RN) Last Done: 07/28/18 13:42 DC Date/Time DO NOT enter until pt leaves facility: 07/28/18 16:00
[2018-07-28 13:43] VITALS: BP 138/99
[2018-07-28] MEDS ORDERED: APIXABAN 5 MG TABLET PO SCH (14:00)
== END 2018-07-28 16:00 | disposition home or self-care (01) | DRG 176 ==
LOC: ED 15:07 → 2N 21:01
DX: I26.99 Other pulmonary embolism without acute cor pulmonale; Z79.899 Other long term (current) drug therapy; I10 Essential (primary) hypertension